=== PATIENT | male | born 1945 | race Caucasian/White ===

== ENCOUNTER 2018-03-11 11:09 | Inpatient (IN) | payer OTHER ==
[~2018-03-11] VITALS: Ht 170.2 cm; Wt 70.8 kg
[~2018-03-11 11:09] MED LIST: LOSARTAN-HCTZ1 EAC1 PO; TAMS0.4C PO
== END 2018-03-20 11:55 | disposition home or self-care (01) | DRG 330 ==
LOC: O/R 03-15 05:55 → SURH 03-15 05:55 → CIR.AMB 03-15 09:25 → EDSTATUS 03-15 09:25 → SURH 03-15 09:26
PROVIDERS: ADMIT Colon & Rectal Surgery
PROC: 0DJD8ZZ Inspection of Lower Intestinal Tract, Via Natural or Artificial Opening Endoscopic (ICD-10-PCS; 2018-03-15)
PROC: 4A12X4Z Monitoring of Cardiac Electrical Activity, External Approach (ICD-10-PCS; 2018-03-15)
PROC: 0DTN4ZZ Resection of Sigmoid Colon, Percutaneous Endoscopic Approach (ICD-10-PCS; principal; 2018-03-15 14:00)
PROC: BT43ZZZ Ultrasonography of Bilateral Kidneys (ICD-10-PCS; 2018-03-18)
DX: C19 Malignant neoplasm of rectosigmoid junction (principal); N39.0 Urinary tract infection, site not specified; N17.8 Other acute kidney failure; D62 Acute posthemorrhagic anemia; N13.8 Other obstructive and reflux uropathy; J43.1 Panlobular emphysema; I11.9 Hypertensive heart disease without heart failure; R73.01 Impaired fasting glucose; F17.210 Nicotine dependence, cigarettes, uncomplicated; Z86.010 Personal history of colon polyps

== ENCOUNTER 2018-03-14 06:15 | Day surgery (SDC) | payer OTHER | END 2018-03-14 13:43 | disposition home or self-care (01) | LOC: AMB-ENDOS 06:15 | DX: K64.1 Second degree hemorrhoids (principal) ==